=== PATIENT | female | born 1945 | race Caucasian/White ===

== ENCOUNTER 2021-09-03 15:06 | Outpatient (CLI) | payer MEDICARE, SELFPAY ==
--- NOTE | 2021-09-03 15:11 | BI_ITS ---
MAMMOGRAPHY - BILATERAL SCREENING REASON FOR EXAM: Female, 76 years old. Routine annual screening examination. PERTINENT HISTORY: Sister with breast cancer. TECHNIQUE: Digital bilateral breast kale (3D mammographic acquisition) in the CC and MLO projections. 2-D mediolateral oblique (MLO) and craniocaudad (CC) views of both breasts were obtained. CAD: Full Field Digital Mammography with Computer Added Detection was performed. COMPARISON: No comparison mammograms available at this time. If any prior films become available, an addendum to this report can be generated. FINDINGS: Breast Composition: The breasts are heterogeneously dense, which may obscure small masses. There are no dominant masses or suspicious calcifications. No other significant abnormalities are identified. There has been no significant change since the prior study. BI/SCRN MAMM (CAD)W/KALE BILAT IMPRESSION: Stable bilateral screening mammogram. Yearly follow-up mammogram recommended. (A) ASSESSMENT CATEGORY: BIRADS Category 1: Negative. A letter regarding these results will be sent to the patient by the facility within 30 days. Approximately 10% of breast cancers are not detected by mammography. A normal mammogram should not delay biopsy of a clinically suspicious abnormality. [id number] Electronically Signed: Edy Laguna MD at 8:40 EST , Service support ,
--- NOTE | 2021-09-03 15:21 | BD_ITS ---
STUDY: DUAL ENERGY X-RAY ABSORPTIOMETRY / DXA REASON FOR EXAM: Female, 76 years old. Post-menopausal TECHNIQUE: Bone Mineral Density (BMD) measurements of lumbar spine and bilateral hips were obtained. COMPARISON: None. FINDINGS: Lumbar Spine (L1-L4): g/cm2 (1.142) / T-score (0.9) / Z-score (3.4) Findings are suggestive of normal bone density with a low fracture risk. Left Femur Total: g/cm2 (0.905) / T-score (-0.3) / Z-score (1.6) Left Femoral Neck: g/cm2 (0.727) / T-score (-1.1) / Z-score (1.1) Right Femur Total: g/cm2 (0.898) / T-score (-0.4) / Z-score (1.5) Right Femoral Neck: g/cm2 (0.739) / T-score (-1.0) / Z-score (1.2) BD/Dexa Bone Density Study IMPRESSION: The patient is considered osteopenic as outlined below according to World Too Organization (WHO) criteria with a low fracture risk. Reference Information: The T-score is the number of standard deviations above or below the standard which is normal for young adults at their peak bone mineral density. The World Health Organization (WHO) interprets the T-scores as follows: Above -1 Normal bone density Between -1 and -2.5 Osteopenia Equal to / or below -2.5 Osteoporosis As a practical clinical guideline, osteopenia may be graded as follows: Mild -1 through -1.5 Moderate -1.6 through -2.0 Severe -2.1 through -2.4 The Z-score is the number of standard deviations above or below age-matched controls. A Z-score of less than -1.5 would be considered abnormal. References: 1. NIH Osteoporosis and Related Bone Diseases www osteo.org 2. International Society for Clinical Densitometry www iscd.org 3. National Osteoporosis Foundation www nof.org Electronically Signed: Edy Laguna MD at 15:29 EST , Service support ,
[2021-09-03 17:59] LABS: AST(SGOT) 13 U/L (15-37); Alanine Aminotransfer ALT/SGPT 30 U/L (13-56); Albumin, Serum 4.1 g/dL (3.2-5.0); Alkaline Phosphatase 101 U/L (45-117); Bilirubin, Direct 0.13 mg/dL (0.00-0.30); Cholesterol 198 mg/dL (200); Globulin 3.7 g/dL (2.2-4.2); High Density Lipoprotein 48 mg/dL; Protein, Total 7.8 g/dL (6.4-8.2); Triglycerides 303 mg/dL; Very Low Density Lipoprotein 61 mg/dL (5-40)
[2021-09-04 10:05] LABS: Anion Gap 14 (5-15); BUN 18 mg/dL (7-18); BUN/Creat Ratio 16.7 RATIO (10-20); Calcium,Total 9.4 mg/dL (8.5-10.1); Chloride 103 mmol/L (98-107); Creatinine, Serum 1.08 mg/dL (0.55-1.02); EST Glomerular Filtration Rate 52 mL/min (>60); Est Glom Filt Rate - Afr Amer 63 mL/min (>60); Glucose 105 mg/dL (74-106); Potassium 3.3 mmol/L (3.5-5.1); Sodium Level 144 mmol/L (136-145)
== END 2021-09-03 23:59 | disposition short-term general hospital (02) ==
PROVIDERS: PCP Internal Medicine; Referring Provider Nurse Practitioner Adult Health; Visit Provider Nurse Practitioner Adult Health
DX: Z00.00 Encounter for general adult medical examination without abnormal findings (principal); Z12.31 Encounter for screening mammogram for malignant neoplasm of breast; Z13.220 Encounter for screening for lipoid disorders; Z78.0 Asymptomatic menopausal state
CPT/HCPCS: 36415; 77063; 77067; 77080; 80048; 80061; 80076

== ENCOUNTER → 2022-02-26 | Outpatient (CLI) | payer MEDICARE, SELFPAY ==
[2022-02-26 18:02] LABS: Absolute Lymphocyte Count 2.38 X10^3/uL (0.83-4.51); Absolute Neutrophil Count 8.1 X10^3/uL (2.0-7.7); Basophil# 0.04 X10^3/uL; Basophil% 0.3 % (0-1); Eosinophils% 0.8 % (0-5); Hematocrit 46.8 % (37-47); Hemoglobin 15.2 g/dL (12.0-15.0); Lymphocyte # 2.38 X10^3/ul (0.83-4.51); Lymphocyte % 19.9 % (19-41); Mean Corp Hgb Conc 32.5 g/dL (32-36); Mean Corpuscular Hgb 29.5 pg (27.0-32.0); Mean Corpuscular Volume 90.9 fL (81-99); Mean Platelet Vol. 9.3 fl (6.2-12.0); Monocyte# 1.22 X10^3/uL; Monocyte% 10.2 % (0-10); NRBC Flagged by Analyzer 0 % (0-5); Neutrophil # 8.13 X10^3/uL (2.7-7.7); Neutrophil % 68.1 % (47-70); Platelet Count 290 K/mm3 (150-450); RBC Distribution Width CV 14.1 % (11.6-14.6); RBC Distribution Width SD 47.5 fl (35.1-43.9); Red Blood Count 5.15 M/mm3 (4.2-5.4)
[2022-02-26 18:46] LABS: Anion Gap 5 (5-15); BUN 15 mg/dL (7-18); BUN/Creat Ratio 16.9 RATIO (10-20); Calcium,Total 9.3 mg/dL (8.5-10.1); Chloride 111 mmol/L (98-107); Cholesterol 184 mg/dL (200); Creatinine, Serum 0.89 mg/dL (0.55-1.02); EST Glomerular Filtration Rate 65 mL/min (>60); Est Glom Filt Rate - Afr Amer 79 mL/min (>60); Glucose 107 mg/dL (74-106); High Density Lipoprotein 46 mg/dL; Potassium 4.1 mmol/L (3.5-5.1); Sodium Level 143 mmol/L (136-145); Triglycerides 345 mg/dL; Uric Acid 5.9 mg/dL (2.6-6.0); Very Low Density Lipoprotein 69 mg/dL (5-40)
== END | disposition home or self-care (01) ==
LOC: MTLAB 16:35
PROVIDERS: PCP Internal Medicine; Referring Provider Nurse Practitioner Adult Health; Visit Provider Nurse Practitioner Adult Health
DX: I10 Essential (primary) hypertension (principal); E87.6 Hypokalemia; E78.1 Pure hyperglyceridemia; R53.83 Other fatigue; M10.9 Gout, unspecified
CPT/HCPCS: 36415; 80048; 80061; 84550; 85025

== ENCOUNTER → 2022-03-17 | Outpatient (CLI) | payer MEDICARE, SELFPAY ==
[2022-03-17 18:08] LABS: Anion Gap 7 (5-15); BUN 10 mg/dL (7-18); BUN/Creat Ratio 9.3 RATIO (10-20); Calcium,Total 9.3 mg/dL (8.5-10.1); Chloride 108 mmol/L (98-107); Creatinine, Serum 1.07 mg/dL (0.55-1.02); EST Glomerular Filtration Rate 53 mL/min (>60); Est Glom Filt Rate - Afr Amer 64 mL/min (>60); Glucose 125 mg/dL (74-106); Potassium 3.6 mmol/L (3.5-5.1); Sodium Level 145 mmol/L (136-145)
== END | disposition home or self-care (01) ==
PROVIDERS: PCP Internal Medicine; Referring Provider Nurse Practitioner Adult Health; Visit Provider Nurse Practitioner Adult Health
DX: E87.6 Hypokalemia (principal); Z79.899 Other long term (current) drug therapy
CPT/HCPCS: 36415; 80048

== ENCOUNTER → 2023-03-27 | Outpatient (CLI) | payer MEDICARE, SELFPAY ==
[2023-03-27 14:29] LABS: Mucous, Urine 0 SEEN /hpf (<or=2+); Red Blood Cells-Urine 0 SEEN /hpf (0-5)
[2023-03-27 15:23] LABS: Absolute Lymphocyte Count 2.46 X10^3/uL (0.83-4.51); Absolute Neutrophil Count 4.9 X10^3/uL (2.0-7.7); Basophil# 0.04 X10^3/uL; Basophil% 0.5 % (0-1); Eosinophil# 0.14 X10^3/uL; Eosinophils% 1.7 % (0-5); Hematocrit 50.8 % (37-47); Hemoglobin 15.9 g/dL (12.0-15.0); Lymphocyte # 2.46 X10^3/ul (0.83-4.51); Lymphocyte % 29.8 % (19-41); Mean Corp Hgb Conc 31.3 g/dL (32-36); Mean Corpuscular Hgb 29.3 pg (27.0-32.0); Mean Corpuscular Volume 93.7 fL (81-99); Mean Platelet Vol. 9.6 fl (6.2-12.0); Monocyte# 0.64 X10^3/uL; Monocyte% 7.7 % (0-10); NRBC Flagged by Analyzer 0 % (0-5); Neutrophil # 4.93 X10^3/uL (2.7-7.7); Neutrophil % 59.7 % (47-70); Platelet Count 279 K/mm3 (150-450); RBC Distribution Width CV 13.9 % (11.6-14.6); RBC Distribution Width SD 47.8 fl (35.1-43.9); Red Blood Count 5.42 M/mm3 (4.2-5.4); White Blood Count 8.3 K/mm3 (4.4-11.0)
[2023-03-27 15:51] LABS: Color, Urine Yellow (Yellow); Glucose, Dipstick Normal (Normal); Ketone-Dipstick 5 mg/dl (Negative); Leukocyte Esterase-Dipstick 100 /ul (Negative); Nitrite-Dipstick Negative (Negative); Occult Blood-Urine Negative /ul (Negative); Protein-Dipstick 30 mg/dl (Negative); Urine Bilirubin Dipstick Negative (Negative); Urine Clarity Clear (Clear); Urine Urobilinogen Normal (Normal)
[2023-03-27 16:17] LABS: Bacteria 1+ /hpf (None Seen); Squamous Epithelial Cells - UA 5-10 SEEN /hpf (5-10); White Blood Cells 0-5 SEEN /hpf (0-5)
[2023-03-27 16:17] LABS: ALB/GLOB Ratio 1.1 RATIO (0.9-2.4); AST(SGOT) 18 U/L (15-37); Alanine Aminotransfer ALT/SGPT 38 U/L (13-56); Albumin, Serum 3.5 g/dL (3.2-5.0); Alkaline Phosphatase 101 U/L (45-117); Anion Gap 5 (5-15); BUN 13 mg/dL (7-18); BUN/Creat Ratio 12.7 RATIO (10-20); Calcium,Total 9.3 mg/dL (8.5-10.1); Chloride 108 mmol/L (98-107); Cholesterol 262 mg/dL (200); Creatinine, Serum 1.02 mg/dL (0.55-1.02); EST Glomerular Filtration Rate 56 mL/min (>60); Est Glom Filt Rate - Afr Amer 67 mL/min (>60); Globulin 3.3 g/dL (2.2-4.2); Glucose 191 mg/dL (74-106); High Density Lipoprotein 48 mg/dL; Protein, Total 6.8 g/dL (6.4-8.2); Sodium Level 143 mmol/L (136-145); Triglycerides 403 mg/dL
== END | disposition home or self-care (01) ==
LOC: BIMLAB 14:22
PROVIDERS: PCP Internal Medicine; Referring Provider Internal Medicine; Visit Provider Internal Medicine
DX: R82.90 Unspecified abnormal findings in urine (principal); E78.1 Pure hyperglyceridemia; I10 Essential (primary) hypertension
CPT/HCPCS: 36415; 80053; 80061; 81001; 85025; 87086; 87088

== ENCOUNTER 2025-01-13 20:23 | Inpatient (IN) | payer MEDICARE, SELFPAY ==
[2025-01-13] VITALS (11 sets, daily range): BP systolic 105–143; BP diastolic 48–89; PULSE 92–101; RESP 18–20; TEMP 36.1–37; O2SAT 85–99; BMI 32.8; BMI 30.8
--- NOTE | 2025-01-13 20:48 | EKG12_ITS ---
Test Reason : DYSRHYTHMIA Blood Pressure : */* mmHG Vent. Rate : 95 BPM Atrial Rate : 95 BPM P-R Int : 142 ms QRS Dur : 74 ms QT Int : 354 ms P-R-T Axes : 43 -7 17 degrees QTcB Int : 444 ms Normal sinus rhythm Minimal voltage criteria for LVH, may be normal variant ( R in aVL ) Inferior infarct , age undetermined Abnormal ECG Confirmed by Jim Peres ([id number]), editor managing newspaper [employer]ONAM [employer]ETS ([id number]) on 01/16/2025 10:50:36 AM Referred By: Lynn Yao Confirmed By: Jim Peres
--- NOTE | 2025-01-13 20:49 | ED.VIS.DYS ---
HPI History of Present Illness Chief Complaint: Shortness of Breath Detail of Chief Complaint: Weakness and shortness of breath Informant: patient and family Narrative Narrative: Patient presents the emergency department complaint of weakness and feeling short of breath. Patient and family was on a [place] cruise from December 09 December 24. 3 days before the end of the trip [facility] and pneumonia and hypoxemia. Subsequently flew back to [place] and prior to arriving in [place] again had a medical emergency and flight and O2 sat in the 50s. She was admitted to [facility] December 25 and stayed there until she was discharged this morning. Patient flew back to [place]. Family brings her in because she is just generally weak and normally walks with a walker at assisted living facility. She denies any chest pain or significant shortness of breath. She said occasional cough. She came in with an oxygen concentrator but apparently was not turned on off of O2 her O2 sat dropped down into the 80s but on 2 L she is in the mid 90s. [facility] Medical History (Updated 01/13/25 @ 22:[address] Lynn Yao, DO) Hx of bacterial pneumonia Abnormal urinalysis Health care maintenance History of tobacco abuse Bunion, left Fracture of right ankle Home Medications ?Medication ?Instructions ?Recorded ?Last Taken ?Type amlodipine 5 mg tablet 5 mg PO DAILY #30 tabs 12/07/23 Unknown Rx fenofibrate micronized 67 mg 67 mg PO DAILY #30 caps 12/07/23 Unknown Rx capsule allopurinol 100 mg tablet 100 mg PO DAILY #90 tabs 02/04/24 Unknown Rx atorvastatin 40 mg tablet 40 mg PO QHS #90 tabs 02/04/24 Unknown Rx albuterol sulfate 90 mcg/actuation 2 inh inhalation Q6H PRN shortness 01/13/25 Unknown History aerosol inhaler of breath or wheezing metformin 500 mg tablet 500 mg PO BID 01/13/25 Unknown History umeclidinium 62.5 mcg-vilanterol 1 ea inhalation DAILY 01/13/25 Unknown History 25 mcg/actuation powdr for inhalation (Anoro Ellipta) Allergy/AdvReac Type Severity Reaction Status Date / Time No Known Allergies Allergy Verified 01/13/25 20:40 Family History Mother Arthritis Myocardial infarction Father Asthma Colon cancer Myocardial infarction Sister Breast cancer Skin cancer Brother Skin cancer Surgical History History of ankle surgery History of open reduction and internal fixation (ORIF) procedure History of bunionectomy of left great toe Social History household members: none housing: apartment number of children: 2 current occupational status: retired pets and animals: No Smoking Status: Former smoker Tobacco: How many years used: 50 how long ago did patient quit smoking: at age [age] years old. 21 years ago alcohol intake: current details: social drinker. several times a week. substance use type: does not use well-balanced diet: other details: Eats what they give me...ham. chipped ham, pickles. eating out: other details: has lunch delivered to her room. ROS ROS ED Review of Systems ROS Unobtainable: other Constitutional Constitutional ED: Reports lethargy; Denies chills, fever(s), sweats or weight loss Eyes Eyes: Denies blurry vision, change in vision or diplopia ENT ENT ED: Denies rhinorrhea or sore throat Cardiovascular Cardiovascular: Denies chest pain, orthopnea or racing heartbeat Respiratory/Chest Respiratory/Chest: Reports dyspnea; Denies cough, dyspnea on exertion, orthopnea or sputum Gastrointestinal Gastrointestinal: Denies abdominal pain, diarrhea, nausea or vomiting Genitourinary Genitourinary ED: Denies dysuria, hematuria or urinary frequency Musculoskeletal Musculoskeletal: Denies arthralgias, back pain, myalgias or neck pain Integumentary Denies abscess, Abrasions or rash Neurologic Neurologic: Reports weakness; Denies headache(s) Psychiatric Psychiatric: Denies anxiety, depression or suicidal thoughts Endocrine Endocrinology: Denies polydipsia, polyphagia or polyuria Hematologic/Lymphatic Hematologic/Lymphatic: Denies easy bleeding, easy bruising or lymphadenopathy Allergic/Immunologic Allergic/Immunologic ED: Denies mouth swelling, tongue swelling or urticaria EXAM Physical Exam Const Vital Signs: 01/13/25 20:27 01/13/25 20:36 01/13/25 20:36 Temperature 97 F L 97 F L Temperature Source Temporal Oral Pulse Rate 94 101 H 99 Respiratory Rate 18 20 H 20 H Respiratory Effort Respiratory Depth Respiratory Pattern Blood Pressure 137/60 H 137/60 H Blood Pressure Mean 85 85 Pulse Ox 99 85 96 Oxygen Delivery Method Room Air Nasal Cannula Oxygen Flow Rate (L/min) 3 01/13/25 20:42 01/13/25 20:48 01/13/25 20:51 Temperature Temperature Source Pulse Rate Respiratory Rate Respiratory Effort Normal Non-Labored Respiratory Depth Normal Respiratory Pattern Normal Blood Pressure Blood Pressure Mean Pulse Ox 97 98 Oxygen Delivery Method Nasal Cannula Nasal Cannula Nasal Cannula Oxygen Flow Rate (L/min) 2 2 2 01/13/25 21:00 01/13/25 21:30 01/13/25 22:00 Temperature 98.6 F Temperature Source Oral Pulse Rate 95 92 92 Respiratory Rate 18 18 18 Respiratory Effort Respiratory Depth Respiratory Pattern Blood Pressure 125/57 H 107/57 L 105/89 H Blood Pressure Mean 79 73 94 Pulse Ox 92 93 97 Oxygen Delivery Method Nasal Cannula Nasal Cannula Nasal Cannula Oxygen Flow Rate (L/min) 2 2 2 Positive well nourished and well developed General Appearance ED: well developed and NAD HEENT Reports TM's clear and moist mucous membranes normocephalic and atraumatic; Negative for trauma or tenderness Tympanic Membrane ED: Yes TM's clear Eyes PERRL and EOMs intact bilaterally General Eye ED: Negative for pale conjunctiva or scleral icterus Neck no lymphadenopathy, supple and no JVD General: Negative for tenderness Chest Wall inspection of chest normal and palpation of chest normal Chest: Negative for tenderness Resp normal respiratory effort and clear to auscultation bilaterally Resp Narrative: Few coarse rhonchi bilaterally. No accessory muscle use or retractions. Effort and Inspection: Negative for respiratory distress or pain with movement Auscultation: rhonchi; Negative for wheezes or diminished lung sounds Cardio regular rate, regular rhythm, S1 normal heart sound, S2 normal heart sound and no murmurs Peripheral Pulses: pulses 2+ throughout GI normal to inspection, nondistended, normoactive bowel sounds, soft to palpation, non-tender, non-distended and no masses Back/Spine no CVA tenderness and no thoracic nor lumbar tenderness Extremity normal to inspection General Extremety ED: Negative for edema General Extremity: Negative for edema Neuro oriented x3, CN's II-XII intact bilaterally, no sensory deficits noted and gait normal Sensorium / Orientation: awake, alert, oriented to person, oriented to place and oriented to time Motor Exam: strength 5/5 throughout and strength abnormal Psych mental status grossly normal Skin no rashes or lesions noted and no wounds MDM MDM MDM Narrative Medical decision making narrative: Patient presents with generalized weakness and dyspnea with exertion after a long lamas with pneumonia. Patient deconditioned and took her son and her nephew both to get her in the car. Normally she lives in assisted living and is able to manage on her own. On 2 L nasal cannula O2 patient doing well and having O2 saturations in the upper 90s. IV line established. EKG obtained showed sinus rhythm with ventricular rate of 95 bpm with old inferior infarct. CBC with differential obtained showing an 11.0 with hemoglobin 15 and platelet count of 334. Chemistries unremarkable. Troponin minimally elevated 15 and BT [employer] was normal at 96. CTA of the chest was obtained to rule out PE given she does have an elevated D-dimer of 0.9 and her recent travel history. On my interpretation I do not appreciate any large central PEs however official report from radiology pending. Will discuss case with hospitalist to evaluate patient for admission given patient will require admission for deconditioning and will require PT and OT and possible rehabilitation facility Lab Data Attestation: I reviewed the patient's lab results. Labs: Laboratory Results - last 24 hr 01/13/25 20:46 WBC 11.0 RBC 5.17 Hgb 15.3 H Hct 47.3 H MCV 91.5 MCH 29.6 MCHC 32.3 RDW Std Deviation 47.9 H RDW Coeff of Kevin 14.2 Plt Count 334 MPV 9.5 Immature Gran % (Auto) 0.500 Neut % (Auto) 79.7 H Lymph % (Auto) 9.4 L Hoke % (Auto) 9.4 Eos % (Auto) 0.5 Baso % (Auto) 0.5 Absolute Neuts (auto) 8.8 H Absolute Lymphs (auto) 1.04 Nucleated RBC % 0 D-Dimer Quant (PE/DVT) 0.90 H* Sodium 139 Potassium 3.9 Chloride 100 Carbon Dioxide 25.5 Anion Gap 13 BUN 8 Creatinine 0.93 Estim Creat Clear Calc 45.85 L Est GFR (MDRD) Non-Af 62 BUN/Creatinine Ratio 8.7 L Glucose 158 H Calcium 10.0 Troponin T High Sens 15 H NT pro BNP II 96 EKG Initial EKG: Attestation: I personally reviewed and interpreted this EKG as follows: Comments: Sinus rhythm with ventricular rate of 95 bpm with old inferior infarct Discharge Plan Triage Chief Complaint: Shortness of Breath ED Provider: Lynn Yao Dx/Rx/DC Orders Clinical Impression: Weakness, Exertional dyspnea, History of hypertension, Adult failure to thrive Prescriptions: No Action albuterol sulfate 90 mcg/actuation HFA aerosol inhaler 2 inh inhalation Q6H PRN (Reason: shortness of breath or wheezing) umeclidinium-vilanterol [Anoro Ellipta] 62.5-25 mcg/actuation blister with device 1 ea inhalation DAILY metformin 500 mg tablet 500 mg PO BID amlodipine 5 mg tablet 5 mg PO DAILY Qty: 30 1RF fenofibrate micronized 67 mg capsule 67 mg PO DAILY Qty: 30 1RF atorvastatin 40 mg tablet 40 mg PO QHS Qty: 90 0RF allopurinol 100 mg tablet 100 mg PO DAILY Qty: 90 0RF Primary Care Provider: Hernando Chung Referrals: Sunny Guzman MD [Med Staff - Active Staff] - Print Language: Indian Disposition Disposition: Acute Care Hospital [facility]
[2025-01-13 21:10] LABS: Absolute Lymphocyte Count 1.04 X10^3/uL (0.83-4.51); Absolute Neutrophil Count 8.8 X10^3/uL (2.0-7.7); Basophil# 0.05 X10^3/uL; Basophil% 0.5 % (0-1); Eosinophil# 0.06 X10^3/uL; Eosinophils% 0.5 % (0-5); Hematocrit 47.3 % (37-47); Hemoglobin 15.3 g/dL (12.0-15.0); Lymphocyte # 1.04 X10^3/ul (0.83-4.51); Lymphocyte % 9.4 % (19-41); Mean Corp Hgb Conc 32.3 g/dL (32-36); Mean Corpuscular Hgb 29.6 pg (27.0-32.0); Mean Corpuscular Volume 91.5 fL (81-99); Mean Platelet Vol. 9.5 fl (6.2-12.0); Monocyte# 1.04 X10^3/uL; Monocyte% 9.4 % (0-10); NRBC Flagged by Analyzer 0 % (0-5); Neutrophil # 8.79 X10^3/uL (2.7-7.7); Neutrophil % 79.7 % (47-70); Platelet Count 334 K/mm3 (150-450); RBC Distribution Width CV 14.2 % (11.6-14.6); RBC Distribution Width SD 47.9 fl (35.1-43.9); Red Blood Count 5.17 M/mm3 (4.2-5.4)
[2025-01-13 21:27] LABS: Anion Gap 13 (5-15); BUN 8 mg/dL (4-19); BUN/Creat Ratio 8.7 RATIO (10-20); Carbon Dioxide 25.5 mmol/L (21.0-32.0); Chloride 100 mmol/L (98-108); Creatinine, Serum 0.93 mg/dL (0.70-1.20); EST Glomerular Filtration Rate 62 (>60); Estimated Creatinine Clearance 45.85 ml/min (50-250); Glucose 158 mg/dL (70-99); Potassium 3.9 mmol/L (3.3-5.1); Pro- Brain NATRIURETIC PEPTIDE 96 pg/mL (<=1800); Sodium Level 139 mmol/L (133-145); Troponin T High Sensitivity 15 ng/L (<=14)
--- NOTE | 2025-01-13 21:37 | CT_ITS ---
PROCEDURE: CTA CHEST W/WO CONTRAST 01/13/2025 REASON FOR EXAM: DYSPNEA, ELEVATED D-DIMER TECHNIQUE: CTA axial imaging of the chest with intravenous contrast. Multiplanar and multisequence images were obtained. PATIENT PREPARATION: Per protocol CONTRAST: Isovue 370 VOLUME: 100 mL. One or more dose reduction techniques were used (e.g., Automated exposure control, adjustment of the mA and/or kV according to patient size, use of iterative reconstruction technique). RADIATION DOSE SUMMARY: CTDlvol: 7.12+ 12.98 mGy DLP: 349.21 mGycm . COMPARISON: None. FINDINGS: Hardware: No acute abnormalities. Lymph nodes: Unremarkable. Heart: Cardiomegaly. No pericardial effusion. Thoracic Aorta: No thoracic aortic aneurysm or dissection. Pulmonary Vessels: No evidence of acute pulmonary emboli through the major subsegmental branches. Most Proximal Level of Embolus (if embolus present): None Lungs and Airways: [id number] centrilobular emphysema. Subpleural reticulation. Interlobular septal thickening and diffuse ground-glass opacities favoring chronic interstitial lung disease. No definite bronchiectasis to suggest fibrotic change. Pleura: No pleural effusion. No pneumothorax. Upper Abdomen: Visualized portions of the upper abdominal viscera are unremarkable. Bones: Degenerative changes of the thoracic spine. CT/CTA Chest W/WO Contrast IMPRESSION: No pulmonary embolism. Chronic interstitial changes without definite fibrotic change. [id number] centrilobular emphysema. Reading Location: [place] [id number]
[2025-01-13 23:13] LABS: Troponin T High Sens 2 HR 16 ng/L (<=14)
--- NOTE | 2025-01-13 23:21 | PCM.HP.STD ---
HPI - General General Date of Admission: 01/13/25 HPI Narrative DANIEL MONCADA, is a 79 F who presents to the hospital with significant weakness. She was on a cruise for 2 weeks that started in [facility] and ended in [place] but for the last 3 days of her cruise she was in the [facility] because of influenza. She flew back to the [facility] and while flying from [place] to [facility], she developed significant hypoxia down to 50% and had to remain on oxygen during the rest of the flight and was hospitalized in [facility] for 2 weeks. She completed a course of antibiotics and was discharged on oxygen concentrator. She landed at [facility] this evening and her son and nephew had to get her into the car as she could not ambulate under her own power. They brought her to the hospital for evaluation at which point is also noted that she was hypoxic because she was not getting any oxygen from her concentrator as it had run out of battery, she was in the mid 80s on room air but in the mid 90s on 2 L nasal cannula. She is afebrile without a leukocytosis. [facility] Medical History (Updated 01/13/25 @ 22:[address] Lynn Yao, DO) Hx of bacterial pneumonia Abnormal urinalysis Health care maintenance History of tobacco abuse Bunion, left Fracture of right ankle Home Medications ?Medication ?Instructions ?Recorded ?Last Taken ?Type amlodipine 5 mg tablet 5 mg PO DAILY #30 tabs 12/07/23 Unknown Rx fenofibrate micronized 67 mg 67 mg PO DAILY #30 caps 12/07/23 Unknown Rx capsule allopurinol 100 mg tablet 100 mg PO DAILY #90 tabs 02/04/24 Unknown Rx atorvastatin 40 mg tablet 40 mg PO QHS #90 tabs 02/04/24 Unknown Rx albuterol sulfate 90 mcg/actuation 2 inh inhalation Q6H PRN shortness 01/13/25 Unknown History aerosol inhaler of breath or wheezing metformin 500 mg tablet 500 mg PO BID 01/13/25 Unknown History umeclidinium 62.5 mcg-vilanterol 1 ea inhalation DAILY 01/13/25 Unknown History 25 mcg/actuation powdr for inhalation (Anoro Ellipta) Allergy/AdvReac Type Severity Reaction Status Date / Time No Known Allergies Allergy Verified 01/13/25 20:40 Family History Mother Arthritis Myocardial infarction Father Asthma Colon cancer Myocardial infarction Sister Breast cancer Skin cancer Brother Skin cancer Surgical History History of ankle surgery History of open reduction and internal fixation (ORIF) procedure History of bunionectomy of left great toe Social History household members: none housing: apartment number of children: 2 current occupational status: retired pets and animals: No Smoking Status: Former smoker Tobacco: How many years used: 50 how long ago did patient quit smoking: at age [age] years old. 21 years ago alcohol intake: current details: social drinker. several times a week. substance use type: does not use well-balanced diet: other details: Eats what they give me...ham. chipped ham, pickles. eating out: other details: has lunch delivered to her room. ROS Constitutional Constitutional: Reports weakness; Denies chills, fatigue, fever(s) or malaise Eyes Eyes: Denies blurry vision ENT HEENT: Denies headache(s) or nasal discharge Cardiovascular Cardiovascular: Denies chest pain, dyspnea on exertion or syncope Respiratory/Chest Respiratory/Chest: Reports shortness of breath with exertion; Denies cough or shortness of breath at rest Gastrointestinal Gastrointestinal: Denies constipation, diarrhea, nausea or vomiting Genitourinary Genitourinary: Denies dysuria Neurologic Neurologic: Denies focal weakness, numbness or tremor(s) Psychiatric Psychiatric: Denies anxiety or depression Vital Signs Vital Signs Vital Signs: 01/13/25 20:27 01/13/25 20:36 01/13/25 20:36 Temperature 97 F L 97 F L Temperature Source Temporal Oral Pulse Rate 94 101 H 99 Respiratory Rate 18 20 H 20 H Respiratory Effort Respiratory Depth Respiratory Pattern Blood Pressure 137/60 H 137/60 H Blood Pressure Mean 85 85 Pulse Ox 99 85 96 Oxygen Delivery Method Room Air Nasal Cannula Oxygen Flow Rate (L/min) 3 01/13/25 20:42 01/13/25 20:48 01/13/25 20:51 Temperature Temperature Source Pulse Rate Respiratory Rate Respiratory Effort Normal Non-Labored Respiratory Depth Normal Respiratory Pattern Normal Blood Pressure Blood Pressure Mean Pulse Ox 97 98 Oxygen Delivery Method Nasal Cannula Nasal Cannula Nasal Cannula Oxygen Flow Rate (L/min) 2 2 2 01/13/25 21:00 01/13/25 21:30 01/13/25 22:00 Temperature 98.6 F Temperature Source Oral Pulse Rate 95 92 92 Respiratory Rate 18 18 18 Respiratory Effort Respiratory Depth Respiratory Pattern Blood Pressure 125/57 H 107/57 L 105/89 H Blood Pressure Mean 79 73 94 Pulse Ox 92 93 97 Oxygen Delivery Method Nasal Cannula Nasal Cannula Nasal Cannula Oxygen Flow Rate (L/min) 2 2 2 01/13/25 22:30 01/13/25 22:30 01/13/25 23:00 Temperature 98.4 F 98.4 F Temperature Source Oral Pulse Rate 95 95 98 Respiratory Rate 18 18 20 H Respiratory Effort Respiratory Depth Respiratory Pattern Blood Pressure 117/49 L 117/49 L 122/48 H Blood Pressure Mean 71 71 72 Pulse Ox 94 94 93 Oxygen Delivery Method Nasal Cannula Nasal Cannula Oxygen Flow Rate (L/min) 2 2 Weight Weight: 173 lb 11.588 oz Body Mass Index (BMI) 32.8 Physical Exam Narrative General: Alert, Oriented x3, Cooperative, No apparent distress HEENT: Atraumatic, PERRLA, EOMI, Normocephalic Oral: Moist Mucosa Neck: Supple, No JVD Lungs: Diminished, Normal air movement, No rhonchi, scattered wheeze, No rales Cardiovascular: Regular rate, Regular Rhythm, Normal S1, Normal S2, No murmurs Abdomen: Soft, Non Tender, Non-Distended, No Hepato-splenomegaly Extremities: No edema, Capillary Refill Less than 3 Seconds Skin: No rashes, No breakdown Musculoskeletal: No Tenderness to Palpation of Joints or Extremities Neurological: No focal neurological deficits, Motor Exam 5/5 strength throughout, Sensory exam intact to light touch and pain Psych/Mental Status: Normal Affect, Appropriate Results Lab / Micro Data 01/13/25 20:46 01/13/25 20:46 Labs: Laboratory Results - last 24 hr 01/13/25 20:46: WBC 11.0, RBC 5.17, Hgb 15.3 H, Hct 47.3 H, MCV 91.5, MCH 29.6, MCHC 32.3, RDW Std Deviation 47.9 H, RDW Coeff of Kevin 14.2, Plt Count 334, MPV 9.5, Immature Gran % (Auto) 0.500, Neut % (Auto) 79.7 H, Lymph % (Auto) 9.4 L, Allen % (Auto) 9.4, Eos % (Auto) 0.5, Baso % (Auto) 0.5, Absolute Neuts (auto) 8.8 H, Absolute Lymphs (auto) 1.04, Nucleated RBC % 0, D-Dimer Quant (PE/DVT) 0.90 H*, Sodium 139, Potassium 3.9, Chloride 100, Carbon Dioxide 25.5, Anion Gap 13, BUN 8, Creatinine 0.93, Estim Creat Clear Calc 45.85 L, Est GFR (MDRD) Non-Af 62, BUN/Creatinine Ratio 8.7 L, Glucose 158 H, Calcium 10.0, Troponin T High Sens 15 H, NT pro BNP II 96 01/13/25 22:49: Troponin T Hi Sens 2 Hr 16 H Imaging Radiology Impression Chest CTA 01/13/25 21:37 IMPRESSION: No pulmonary embolism. Chronic interstitial changes without definite fibrotic change. [id number] centrilobular emphysema. Reading Location: [place] [address] Assessment & Plan Assessment/Plan (1) Adult failure to thrive: (2) Exertional dyspnea: (3) Weakness: PLAN: Plan 1. Acute hypoxic respiratory insufficiency secondary to recent influenza A with superimposed bacterial pneumonia complicated by history of COPD/weakness and debility ? PT/OT ? Consult case management for discharge planning ? Will continue with her home inhalers as indicated ? Will maintain her on 2 L nasal cannula ? She does not have a leukocytosis and is afebrile, she does not require any further treatments either for her influenza A which she was on Tamiflu for while on the cruise ship in [place] or antibiotics that she completed while in [facility] 2. Essential HTN/HLD ? Continue with her home blood pressure medications ? Continue with her home Lipitor ? Will monitor and make adjustments as necessary 3. Type 2 diabetes ? Hold metformin ? High scale insulin ? Accu-Cheks ACHS ? Will monitor make adjustments as necessary DVT: Lovenox Charges/Coding Visit Charges Inpatient E&M: 05525 Init Hosp L2
[2025-01-14] VITALS (8 sets, daily range): BP systolic 123–135; BP diastolic 44–70; PULSE 73–91; RESP 18–20; TEMP 36.4–36.8; O2SAT 94–97
--- NOTE | 2025-01-14 00:54 | NURSING ---
This RN called [facility] to ask for a med list. The nurse that answered the call said she would walk over to the independent living side and ask them to fax the med list.
[2025-01-14 01:59] LABS: Troponin T High Sens 4 HR 28 ng/L (<=14)
[2025-01-14 06:39] LABS: Bedside Glucose 131 mg/dL (74-106)
[2025-01-14] MEDS: Enoxaparin 40 MG/0.4 ML Syringe SC (08:25)
[2025-01-14] MEDS: amLODIPine 5 MG Tablet PO (08:26)
[2025-01-14] MEDS: Allopurinol 100 MG Tablet PO (08:26)
[2025-01-14] MEDS: Fenofibrate 48 MG Tablet PO (08:26)
--- NOTE | 2025-01-14 08:50 | PCM.PN.HOSP ---
Reason for Visit Reason for Visit: Diagnoses Other forms of dyspnea (01/13/25) Weakness (01/13/25) Adult failure to thrive (01/13/25) Subjective Subjective Patient is an 79-year-old female admitted with progressive generalized weakness following recent cruise which was complicated by flu and subsequent pneumonia requiring hospitalization in [place]. Patient was brought directly to the ED after she disembarked from the airport Objective Data Objective Data Vital Signs: Vital Signs Temp Pulse Resp BP Pulse Ox O2 Del Method O2 Flow Rate 97.6 F L 87 20 H 124/51 H 94 Nasal Cannula 2.5 01/14/25 08:21 01/14/25 08:21 01/14/25 08:21 01/14/25 08:21 01/14/25 08:31 01/14/25 08:31 01/14/25 08:31 Oxygen Flow Rate (L/min) 2.5 Oxygen Delivery Method Nasal Cannula Weight: 76.4 kg Body Mass Index (BMI) 30.8 Intake & Output: Intake and Output for Last 24 Hours 01/12/25 01/13/25 01/14/25 23:59 23:59 23:59 Intake Total 400 / 400 Balance 400 / 400 Lab / Micro Data 01/13/25 20:46 01/13/25 20:46 Labs: Laboratory Results - last 24 hr 01/13/25 20:46: WBC 11.0, RBC 5.17, Hgb 15.3 H, Hct 47.3 H, MCV 91.5, MCH 29.6, MCHC 32.3, RDW Std Deviation 47.9 H, RDW Coeff of Kevin 14.2, Plt Count 334, MPV 9.5, Immature Gran % (Auto) 0.500, Neut % (Auto) 79.7 H, Lymph % (Auto) 9.4 L, [place] % (Auto) 9.4, Eos % (Auto) 0.5, Baso % (Auto) 0.5, Absolute Neuts (auto) 8.8 H, Absolute Lymphs (auto) 1.04, Nucleated RBC % 0, D-Dimer Quant (PE/DVT) 0.90 H*, Sodium 139, Potassium 3.9, Chloride 100, Carbon Dioxide 25.5, Anion Gap 13, BUN 8, Creatinine 0.93, Estim Creat Clear Calc 45.85 L, Est GFR (MDRD) Non-Af 62, BUN/Creatinine Ratio 8.7 L, Glucose 158 H, Calcium 10.0, Troponin T High Sens 15 H, NT pro BNP II 96 01/13/25 22:49: Troponin T Hi Sens 2 Hr 16 H 01/14/25 01:35: Troponin T Hi Sens 4Hr 28 H 01/14/25 06:14: POC Glucose 131 H Radiography Diagnostic Testing: Radiology Impression Chest CTA 01/13/25 21:37 IMPRESSION: No pulmonary embolism. Chronic interstitial changes without definite fibrotic change. Ccobgssk-we-vakpcs centrilobular emphysema. Reading Location: [place] [address] Physical Exam Narrative GENERAL: cooperative on supplemental oxygen HEENT: Atraumatic; normocephalic EYES; Anicteric, Normal Conjunctiva NECK; supple, normal thyroid, RESPIRATORY: Diminished to auscultation CARDIOVASCULAR: Regular S1 S2, GI: soft, normoactive bowel sounds, : No Renal angle tenderness; EXTREMITIES: No edema, no clubbing, MUSCULOSKELETAL: no muscle wasting NEURO: Awake; no lateralizing signs. SKIN: No Rash PSYCH; Flat affect Assessment & Plan Assessment/Plan (1) Adult failure to thrive: (2) Exertional dyspnea: (3) Weakness: PLAN: Plan Patient is an 79-year-old female admitted with progressive generalized weakness following recent cruise which was complicated by flu and subsequent pneumonia requiring hospitalization in [place]. Patient was brought directly to the ED after she disembarked from the airport 1. Acute hypoxic respiratory insufficiency ? Secondary to recent influenza A pneumonia with superimposed bacterial pneumonia. Patient was treated appropriately. Placed on supplemental oxygen. Plan is to assess patient for home oxygen 2. Physical deconditioning ? Requested for PT OT eval and psychologist social to assist with discharge planning 3. Hypertension ? Blood pressure controlled, home medications continued with dose adjustment as needed 4. Diabetes mellitus type 2 ? Patient is on metformin held on admission placed on Accu-Cheks AC and at bedtime with sliding scale coverage 5. Dyslipidemia ? Patient is on fenofibrate and atorvastatin, continued 6. Gout ? Patient is on allopurinol continue 7. DVT prophylaxis ? On enoxaparin Charges/Coding Visit Charges Inpatient E&M: 35796 Subs Hosp L2
--- NOTE | 2025-01-14 09:43 | CASEMGMT ---
Social Work SW met w/pt, reviewed prior level of function and anticipated discharge plan w/pt. PCP: Dr. Chung Specialists: None Pharmacy: [facility] in [place] Insurance Coverage/prescription coverage: [place] [employer] LNSHELLEY: Son, Wale, lives local. LW/POA: None. Pt has not completed the documents, is not interested in completing them at this time. Living Arrangements/Prior level of function: Pt lives alone in independent living at [place]. Pt cooks, cleans, drives, completes all ADLS for herself. Pt normally does not use and DME, and in fact does not own any DME. DME/HHC/SNF: Pt has no history of any. Pt is not normally on home O2. Pt went on a cruise and got sick on the cruise, was in a hospital in [place], then flew home. Pt's family brought her here as she was still not feeling well. Plan: TBD. Pt would prefer to go home at d/c if able. Pt is open to HHC if needed. SW will continue to follow, explained to pt will need to see how therapy goes today, to help determine if returning home is appropriate. It is also anticipated pt may need home O2 if she is indeed able to return home. ISABEL Draper
--- NOTE | 2025-01-14 10:06 | CASEMGMT ---
Social Work SW did create a list, should it be needed via [facility] of [facility] facilities in network w/pt's insurance, in pt's preferred geographic area and complete w/quality and resource use data. ISABEL Draper
--- NOTE | 2025-01-14 11:56 | CASEMGMT ---
Addendum entered by Mariella Peck 01/14/25 14:04: Social Work Pt's son called SW back, he is in agreement w/plan for pt to go to [facility]. SW did let son know this is subject to precert, and there is a chance they do not authorize pt should she improve with PT. Son states understanding. He also did inform SW that pt does have an oxygen device through [facility] that was covered by insurance, however it did not work properly on their way back from [place]. SW will continue to follow, plan continues to be for pt to go to [facility]. ISABEL Draper Addendum entered by Mariella Peck 01/14/25 12:13: Social Work Initial referral sent to [facility] via [facility]. ISABEL Draper Original Note: Social Work SW spoke w/therapy, PT does think pt may benefit from SNF placement. SW spoke w/pt, she is agreeable for short term SNF placement. SW offered pt the SNF list PERLITA created. Pt declined list, she would like to go to [facility] since she lives there in the [place]. SW explained will make the referral, and she will need a precert so will be here through the weekend. Pt states understanding. SW inquired if she would like SW to call and update her son, she is agreeable to this. PERLITA called son Wale, message left to call this SW back. ISABEL Draper
[2025-01-14 12:00] LABS: Bedside Glucose 152 mg/dL (74-106)
[2025-01-14] MEDS: Insulin Lispro 100 UNIT/ML INSULN.PEN SC ×2 (12:07→16:52)
[2025-01-14 16:18] LABS: Bedside Glucose 162 mg/dL (74-106)
[2025-01-14] MEDS: Glucerna Shake 120 ML LIQUID PO ×2 (16:52→21:03)
[2025-01-14] MEDS: Atorvastatin Calcium 40 MG Tablet PO (21:03)
[2025-01-14] MEDS: 0.9% Saline Lock 10 ML Syringe IV (21:03)
[2025-01-14 21:43] LABS: Bedside Glucose 139 mg/dL (74-106)
[2025-01-15] VITALS (7 sets, daily range): BP systolic 120–123; BP diastolic 48–59; PULSE 70–86; RESP 16–18; TEMP 36.6–36.9; O2SAT 89–96
[2025-01-15 06:31] LABS: Bedside Glucose 138 mg/dL (74-106)
[2025-01-15 07:02] LABS: Absolute Lymphocyte Count 1.38 X10^3/uL (0.83-4.51); Absolute Neutrophil Count 3.9 X10^3/uL (2.0-7.7); Basophil# 0.06 X10^3/uL; Basophil% 0.9 % (0-1); Eosinophil# 0.34 X10^3/uL; Eosinophils% 5.3 % (0-5); Hematocrit 38.4 % (37-47); Hemoglobin 12.4 g/dL (12.0-15.0); Lymphocyte # 1.38 X10^3/ul (0.83-4.51); Lymphocyte % 21.6 % (19-41); Mean Corp Hgb Conc 32.3 g/dL (32-36); Mean Corpuscular Hgb 29.6 pg (27.0-32.0); Mean Corpuscular Volume 91.6 fL (81-99); Mean Platelet Vol. 9.6 fl (6.2-12.0); Monocyte# 0.74 X10^3/uL; Monocyte% 11.6 % (0-10); NRBC Flagged by Analyzer 0 % (0-5); Neutrophil # 3.85 X10^3/uL (2.7-7.7); Neutrophil % 60.1 % (47-70); Platelet Count 271 K/mm3 (150-450); RBC Distribution Width CV 14.3 % (11.6-14.6); RBC Distribution Width SD 47.8 fl (35.1-43.9); Red Blood Count 4.19 M/mm3 (4.2-5.4); White Blood Count 6.4 K/mm3 (4.4-11.0)
--- NOTE | 2025-01-15 07:27 | PCM.PN.HOSP ---
Reason for Visit Reason for Visit: Diagnoses Other forms of dyspnea (01/13/25) Weakness (01/13/25) Adult failure to thrive (01/13/25) Subjective Subjective Patient was placed under enteric precaution after had 1 bout of explosive loose bowel movement. Per nursing staff patient has not had any recurrence. Objective Data Objective Data Vital Signs: Vital Signs Temp Pulse Resp BP Pulse Ox O2 Del Method O2 Flow Rate 97.8 F 83 18 120/48 L 96 Nasal Cannula 2 01/15/25 06:11 01/15/25 06:11 01/15/25 06:11 01/15/25 06:11 01/15/25 06:11 01/15/25 06:16 01/15/25 06:16 Oxygen Flow Rate (L/min) 2 Oxygen Delivery Method Nasal Cannula Weight: 76.4 kg Body Mass Index (BMI) 30.8 Intake & Output: Intake and Output for Last 24 Hours 01/13/25 01/14/25 01/15/25 23:59 23:59 23:59 Intake Total 600 / 600 100 / 100 Balance 600 / 600 100 / 100 Lab / Micro Data 01/15/25 06:26 01/15/25 06:26 Labs: Laboratory Results - last 24 hr 01/14/25 11:35: POC Glucose 152 H 01/14/25 16:01: POC Glucose 162 H 01/14/25 21:02: POC Glucose 139 H 01/15/25 06:10: POC Glucose 138 H 01/15/25 06:26: WBC 6.4, RBC 4.19 L, Hgb 12.4, Hct 38.4, MCV 91.6, MCH 29.6, MCHC 32.3, RDW Std Deviation 47.8 H, RDW Coeff of Kevin 14.3, Plt Count 271, MPV 9.6, Immature Gran % (Auto) 0.500, Neut % (Auto) 60.1, Lymph % (Auto) 21.6, [place] % (Auto) 11.6 H, Eos % (Auto) 5.3 H, Baso % (Auto) 0.9, Absolute Neuts (auto) 3.9, Absolute Lymphs (auto) 1.38, Nucleated RBC % 0 Physical Exam Narrative GENERAL: cooperative on supplemental oxygen HEENT: Atraumatic; normocephalic EYES; Anicteric, Normal Conjunctiva NECK; supple, normal thyroid, RESPIRATORY: Diminished to auscultation CARDIOVASCULAR: Regular S1 S2, GI: soft, normoactive bowel sounds, : No Renal angle tenderness; EXTREMITIES: No edema, no clubbing, MUSCULOSKELETAL: no muscle wasting NEURO: Awake; no lateralizing signs. SKIN: No Rash PSYCH; Flat affect Assessment & Plan Assessment/Plan (1) Adult failure to thrive: (2) Exertional dyspnea: (3) Weakness: PLAN: Plan Patient is an 79-year-old female admitted with progressive generalized weakness following recent cruise which was complicated by flu and subsequent pneumonia requiring hospitalization in [place]. Patient was brought directly to the ED after she disembarked from the airport 1. Acute hypoxic respiratory insufficiency ? Secondary to recent influenza A pneumonia with superimposed bacterial pneumonia. Patient was treated appropriately. Placed on supplemental oxygen. Plan is to assess patient for home oxygen ? 01/15/2025; patient remains on 2 L flow per minute 2. Physical deconditioning ? Requested for PT OT eval and psychosocial rehabilitation counselor to assist with discharge planning 3. Hypertension ? Blood pressure controlled, home medications continued with dose adjustment as needed 4. Diabetes mellitus type 2 ? Patient is on metformin held on admission placed on Accu-Cheks AC and at bedtime with sliding scale coverage 5. Dyslipidemia ? Patient is on fenofibrate and atorvastatin, continued 6. Gout ? Patient is on allopurinol continue 7. DVT prophylaxis ? On enoxaparin 8. Diarrhea ? Patient was placed under enteric precautions given her recent travel. She had also been treated with antibiotics stool was therefore sent for enteric pathogen panel as well as C. difficile Charges/Coding Visit Charges Inpatient E&M: 49259 Subs Hosp L2
[2025-01-15 07:37] LABS: Anion Gap 11 (5-15); BUN 6 mg/dL (4-19); BUN/Creat Ratio 9.2 RATIO (10-20); Carbon Dioxide 25.6 mmol/L (21.0-32.0); Chloride 106 mmol/L (98-108); EST Glomerular Filtration Rate 87 (>60); Estimated Creatinine Clearance 53.67 ml/min (50-250); Glucose 135 mg/dL (70-99); Potassium 3.4 mmol/L (3.3-5.1); Sodium Level 143 mmol/L (133-145)
[2025-01-15] MEDS: Glucerna Shake 120 ML LIQUID PO ×2 (08:30→21:33)
[2025-01-15] MEDS: Fenofibrate 48 MG Tablet PO (08:31)
[2025-01-15] MEDS: Allopurinol 100 MG Tablet PO (08:31)
[2025-01-15] MEDS: Enoxaparin 40 MG/0.4 ML Syringe SC (08:31)
[2025-01-15] MEDS: amLODIPine 5 MG Tablet PO (08:32)
[2025-01-15 12:13] LABS: Bedside Glucose 147 mg/dL (74-106)
--- NOTE | 2025-01-15 15:48 | NURSING ---
o2 resumed at 1 l nc, and it increased to 93%.
[2025-01-15 18:08] LABS: Bedside Glucose 115 mg/dL (74-106)
[2025-01-15] MEDS: Atorvastatin Calcium 40 MG Tablet PO (21:33)
[2025-01-15 22:45] LABS: Bedside Glucose 135 mg/dL (74-106)
[2025-01-16] VITALS (7 sets, daily range): BP systolic 114–125; BP diastolic 48–59; PULSE 74–81; RESP 16–19; TEMP 36.3–36.6; O2SAT 84–98
[2025-01-16 06:24] LABS: Bedside Glucose 145 mg/dL (74-106)
[2025-01-16 06:55] LABS: Absolute Lymphocyte Count 1.45 X10^3/uL (0.83-4.51); Absolute Neutrophil Count 3.2 X10^3/uL (2.0-7.7); Basophil# 0.05 X10^3/uL; Basophil% 0.9 % (0-1); Eosinophil# 0.36 X10^3/uL; Eosinophils% 6.3 % (0-5); Hematocrit 38.4 % (37-47); Hemoglobin 12.5 g/dL (12.0-15.0); Lymphocyte # 1.45 X10^3/ul (0.83-4.51); Lymphocyte % 25.3 % (19-41); Mean Corp Hgb Conc 32.6 g/dL (32-36); Mean Corpuscular Hgb 29.6 pg (27.0-32.0); Mean Platelet Vol. 9.7 fl (6.2-12.0); Monocyte# 0.67 X10^3/uL; Monocyte% 11.7 % (0-10); NRBC Flagged by Analyzer 0 % (0-5); Neutrophil # 3.19 X10^3/uL (2.7-7.7); Neutrophil % 55.5 % (47-70); Platelet Count 256 K/mm3 (150-450); RBC Distribution Width CV 14.2 % (11.6-14.6); RBC Distribution Width SD 47.6 fl (35.1-43.9); Red Blood Count 4.22 M/mm3 (4.2-5.4); White Blood Count 5.7 K/mm3 (4.4-11.0)
[2025-01-16 07:24] LABS: Anion Gap 11 (5-15); BUN 7 mg/dL (4-19); Calcium,Total 8.8 mg/dL (7.6-11.0); Carbon Dioxide 25.5 mmol/L (21.0-32.0); Chloride 105 mmol/L (98-108); Creatinine, Serum 0.69 mg/dL (0.70-1.20); EST Glomerular Filtration Rate 88 (>60); Estimated Creatinine Clearance 53.67 ml/min (50-250); Glucose 131 mg/dL (70-99); Potassium 3.3 mmol/L (3.3-5.1); Sodium Level 142 mmol/L (133-145)
--- NOTE | 2025-01-16 08:03 | PCM.PN.HOSP ---
Reason for Visit Reason for Visit: Diagnoses Other forms of dyspnea (01/13/25) Weakness (01/13/25) Adult failure to thrive (01/13/25) Subjective Subjective Patient has not had no more recurrence of her diarrhea. Her isolation subsequently discontinued. Awaiting transfer to a [place] [facility] [place] [facility] facility Objective Data Objective Data Vital Signs: Vital Signs Temp Pulse Resp BP Pulse Ox O2 Del Method O2 Flow Rate 97.9 F 79 17 125/59 H 94 Nasal Cannula 2 01/16/25 05:44 01/16/25 05:44 01/16/25 05:44 01/16/25 05:44 01/16/25 05:49 01/16/25 07:42 01/16/25 05:49 Oxygen Flow Rate (L/min) 2 Oxygen Delivery Method Nasal Cannula Weight: 76.4 kg Body Mass Index (BMI) 30.8 Intake & Output: Intake and Output for Last 24 Hours 01/14/25 01/15/25 01/16/25 23:59 23:59 23:59 Intake Total 600 / 600 400 / 400 300 / 300 Balance 600 / 600 400 / 400 300 / 300 Lab / Micro Data 01/16/25 06:11 01/16/25 06:11 Labs: Laboratory Results - last 24 hr 01/15/25 11:41: POC Glucose 147 H 01/15/25 15:44: POC Glucose 115 H 01/15/25 21:32: POC Glucose 135 H 01/16/25 05:47: POC Glucose 145 H 01/16/25 06:11: WBC 5.7, RBC 4.22, Hgb 12.5, Hct 38.4, MCV 91.0, MCH 29.6, MCHC 32.6, RDW Std Deviation 47.6 H, RDW Coeff of Kevin 14.2, Plt Count 256, MPV 9.7, Immature Gran % (Auto) 0.300, Neut % (Auto) 55.5, Lymph % (Auto) 25.3, Bent % (Auto) 11.7 H, Eos % (Auto) 6.3 H, Baso % (Auto) 0.9, Absolute Neuts (auto) 3.2, Absolute Lymphs (auto) 1.45, Nucleated RBC % 0, Sodium 142, Potassium 3.3, Chloride 105, Carbon Dioxide 25.5, Anion Gap 11, BUN 7, Creatinine 0.69 L, Estim Creat Clear Calc 53.67, Est GFR (MDRD) Non-Af 88, BUN/Creatinine Ratio 10.0, Glucose 131 H, Calcium 8.8 Physical Exam Narrative GENERAL: cooperative on supplemental oxygen HEENT: Atraumatic; normocephalic EYES; Anicteric, Normal Conjunctiva NECK; supple, normal thyroid, RESPIRATORY: Diminished to auscultation CARDIOVASCULAR: Regular S1 S2, GI: soft, normoactive bowel sounds, : No Renal angle tenderness; EXTREMITIES: No edema, no clubbing, MUSCULOSKELETAL: no muscle wasting NEURO: Awake; no lateralizing signs. SKIN: No Rash PSYCH; Flat affect Assessment & Plan Assessment/Plan (1) Adult failure to thrive: (2) Exertional dyspnea: (3) Weakness: PLAN: Plan Patient is an 79-year-old female admitted with progressive generalized weakness following recent cruise which was complicated by flu and subsequent pneumonia requiring hospitalization in [place]. Patient was brought directly to the ED after she disembarked from the airport 1. Acute hypoxic respiratory insufficiency ? Secondary to recent influenza A pneumonia with superimposed bacterial pneumonia. Patient was treated appropriately. Placed on supplemental oxygen. Plan is to assess patient for home oxygen ? 01/15/2025; patient remains on 2 L flow per minute 2. Physical deconditioning ? Requested for PT OT eval and social group worker to assist with discharge planning ? 01/16/2025; awaiting insurance precertification prior to transfer to [place] [facility] [place] facility 3. Hypertension ? Blood pressure controlled, home medications continued with dose adjustment as needed 4. Diabetes mellitus type 2 ? Patient is on metformin held on admission placed on Accu-Cheks AC and at bedtime with sliding scale coverage 5. Dyslipidemia ? Patient is on fenofibrate and atorvastatin, continued 6. Gout ? Patient is on allopurinol continue 7. DVT prophylaxis ? On enoxaparin 8. Diarrhea ? Patient was placed under enteric precautions given her recent travel. She had also been treated with antibiotics stool was therefore sent for enteric pathogen panel as well as C. difficile ? 01/16/2025; patient has not had any recurrence of her diarrhea. Isolation subsequently discontinued Charges/Coding Visit Charges Inpatient E&M: 96443 Subs Hosp L2
--- NOTE | 2025-01-16 08:24 | CASEMGMT ---
Discharge Planning Updates sent to [facility]. Acceptance pending. Joann Rivero DC Planning Asst.
--- NOTE | 2025-01-16 08:50 | CASEMGMT ---
[facility] has accepted and will submit for precert. Joann Rivero DC Planning Asst.
[2025-01-16] MEDS: amLODIPine 5 MG Tablet PO (09:35)
[2025-01-16] MEDS: Glucerna Shake 120 ML LIQUID PO ×2 (09:35→16:46)
[2025-01-16] MEDS: Allopurinol 100 MG Tablet PO (09:35)
[2025-01-16] MEDS: Fenofibrate 48 MG Tablet PO (09:35)
[2025-01-16] MEDS: Enoxaparin 40 MG/0.4 ML Syringe SC (09:36)
--- NOTE | 2025-01-16 10:26 | CASEMGMT ---
[facility] Pt notified. SW remains available to follow. YTE Silverio
[2025-01-16 11:43] LABS: Bedside Glucose 158 mg/dL (74-106)
[2025-01-16] MEDS: Insulin Lispro 100 UNIT/ML INSULN.PEN SC ×2 (12:00→16:43)
--- NOTE | 2025-01-16 15:12 | CASEMGMT ---
[facility] has obtained auth to admit. SW updated. Joann Rivero DC Planning Ast.
--- NOTE | 2025-01-16 15:28 | PCM.TXEXTCAR ---
Diet Diet Order/Speech Therapy: INPATIENT Hospital Diet / Speech Therapy Order(s) 01/13/25 23:58 Diet: Cardiac - Heart Healthy Food consistency:: Regular Liquid Consistency:: Regular/Thin Routine Orders/Code Status Code Status: Full Code DC O2, CPAP, BIPAP needs Home O2 Discharge instructions: Yes Type of respiratory needs?: Oxygen Oxygen frequency: Continuous Continuous oxygen liters per minute: 2 Therapies Physical Therapy: Eval and Treat Occupational Therapy: Eval and Treat Problem/Diagnosis (1) Adult failure to thrive: Status: Acute Code(s): R62.7 - Adult failure to thrive (2) Exertional dyspnea: Status: Acute Code(s): R06.09 - Other forms of dyspnea (3) Weakness: Status: Acute Code(s): R53.1 - Weakness Plan Patient is an 79-year-old female admitted with progressive generalized weakness following recent cruise which was complicated by flu and subsequent pneumonia requiring hospitalization in [place]. Patient was brought directly to the ED after she disembarked from the airport 1. Acute hypoxic respiratory insufficiency ? Secondary to recent influenza A pneumonia with superimposed bacterial pneumonia. Patient was treated appropriately. Placed on supplemental oxygen. Plan is to assess patient for home oxygen ? 01/15/2025; patient remains on 2 L flow per minute 2. Physical deconditioning ? Requested for PT OT eval and community mental health social worker to assist with discharge planning ? 01/16/2025; awaiting insurance precertification prior to transfer to [facility] facility ? Patient was discharged to correction facility once insurance precertification was obtained 3. Hypertension ? Blood pressure controlled, home medications continued with dose adjustment as needed 4. Diabetes mellitus type 2 ? Patient is on metformin held on admission placed on Accu-Cheks AC and at bedtime with sliding scale coverage 5. Dyslipidemia ? Patient is on fenofibrate and atorvastatin, continued 6. Gout ? Patient is on allopurinol continue 7. DVT prophylaxis ? On enoxaparin 8. Diarrhea ? Patient was placed under enteric precautions given her recent travel. She had also been treated with antibiotics stool was therefore sent for enteric pathogen panel as well as C. difficile ? 01/16/2025; patient has not had any recurrence of her diarrhea. Isolation subsequently discontinued Allergies/Procedures Done in Hospital Allergies No Known Allergies Allergy (Verified 01/13/25 20:40) Type of Care/Length of Stay Estimated LOS: Convalescent Care Less Than 30 days Type of Care Needed: Skilled Rehab Potential: Good Prognosis: Good Additional Orders/Day of Discharge Day of Discharge: 01/16/25 Dietary and Speech Recommendations Dietitian Recommendations/Changes: Will adjust diet to CCD, Low sodium diet to manage medical conditions. Will continue 120mL Glucerna 4x daily with medpass to provide supplemental energy and promote weight maintenance. Discharge Plan Admission Admit Date/Time: 01/13/25 23:21 Attending Provider: Saqib Mahan Primary Care Provider: Hernando Chung Consulting Providers: Pietro Griffith Discharge Orders/Prescriptions Prescriptions: New insulin lispro [Humalog KwikPen Insulin] 100 unit/mL Insulin Pen See Protocol subcut ACHS Qty: 0 0RF Protocol: 3. Sliding Scale Insulin Med Dosing Condition: 150-189 mg/dl = 1 unit Condition: 190-229 mg/dl = 2 units Condition: 230-269 mg/dl = 3 units Condition: 270-309 mg/dl = 4 units Condition: 310-349 mg/dl = 5 units Condition: 350-399 mg/dl = 6 units Condition: 400-449 mg/dl = 7 units Condition: Greater than 449 call physician Protocol Text: Suggested for: - Patients on Total Daily Insulin Dose of 37-55 units - Obese, infected, or steroid patients MEDIUM DOSING ALGORITHIM Glucerna 1.2 Bin 0.06-1.2 gram-kcal/mL Liquid 120 ml PO 4X/DAY Qty: 0 0RF Continued albuterol sulfate 90 mcg/actuation HFA aerosol inhaler 2 inh inhalation Q6H PRN (Reason: shortness of breath or wheezing) umeclidinium-vilanterol [Anoro Ellipta] 62.5-25 mcg/actuation blister with device 1 ea inhalation DAILY metformin 500 mg tablet 500 mg PO BID amlodipine 5 mg tablet 5 mg PO DAILY Qty: 30 1RF fenofibrate micronized 67 mg capsule 67 mg PO DAILY Qty: 30 1RF atorvastatin 40 mg tablet 40 mg PO QHS Qty: 90 0RF allopurinol 100 mg tablet 100 mg PO DAILY Qty: 90 0RF Referrals / Follow Up: Sunny Guzman MD [Med Staff - Active Staff] - Hernando Chung MD [Primary Care Provider] - Disposition Disposition (needs filled in before D/C Order can be placed): [facility]
--- NOTE | 2025-01-16 15:30 | DS.PCM_ITS ---
Providers Date of Admission: 01/13/25 Date of Discharge: 01/16/25 Primary Care Physician: Dr. Hernando Chung MD Reason For Visit: HYPOXIA AND WEAKNESS Diagnosis Discharge Diagnosis (1) Adult failure to thrive: Status: Acute Code(s): R62.7 - Adult failure to thrive (2) Exertional dyspnea: Status: Acute Code(s): R06.09 - Other forms of dyspnea (3) Weakness: Status: Acute Code(s): R53.1 - Weakness Plan Patient is an 79-year-old female admitted with progressive generalized weakness following recent cruise which was complicated by flu and subsequent pneumonia requiring hospitalization in [place]. Patient was brought directly to the ED after she [place]embark[place] from the airport 1. Acute hypoxic respiratory insufficiency ? Secondary to recent influenza A pneumonia with superimposed bacterial pneumonia. Patient was treated appropriately. Placed on supplemental oxygen. Plan is to assess patient for home oxygen ? 01/15/2025; patient remains on 2 L flow per minute 2. Physical deconditioning ? Requested for PT OT eval and pediatric social worker to assist with discharge planning ? 01/16/2025; awaiting insurance precertification prior to transfer to [facility] ? Patient was discharged to [facility] once insurance precertification was obtained 3. Hypertension ? Blood pressure controlled, home medications continued with dose adjustment as needed 4. Diabetes mellitus type 2 ? Patient is on metformin held on admission placed on Accu-Cheks AC and at bedtime with sliding scale coverage 5. Dyslipidemia ? Patient is on fenofibrate and atorvastatin, continued 6. Gout ? Patient is on allopurinol continue 7. DVT prophylaxis ? On enoxaparin 8. Diarrhea ? Patient was placed under enteric precautions given her recent travel. She had also been treated with antibiotics stool was therefore sent for enteric pathogen panel as well as C. difficile ? 01/16/2025; patient has not had any recurrence of her diarrhea. Isolation subsequently discontinued Medications at Discharge Home Medications amlodipine 5 mg tablet 5 mg PO DAILY #30 tabs 12/07/23 fenofibrate micronized 67 mg capsule 67 mg PO DAILY #30 caps 12/07/23 allopurinol 100 mg tablet 100 mg PO DAILY #90 tabs 02/04/24 atorvastatin 40 mg tablet 40 mg PO QHS #90 tabs 02/04/24 albuterol sulfate 90 mcg/actuation aerosol inhaler 2 inh inhalation Q6H PRN shortness of breath or wheezing 01/13/25 metformin 500 mg tablet 500 mg PO BID 01/13/25 umeclidinium 62.5 mcg-vilanterol 25 mcg/actuation powdr for inhalation (Anoro Ellipta) 1 ea inhalation DAILY 01/13/25 insulin lispro 100 unit/mL subcutaneous pen (Humalog KwikPen (U-100) Insulin) See Protocol subcut ACHS #0 mL 01/16/25 nutrition tx glu intol,lac-free,soy-fiber 0.06 gram-1.2 kcal/mL liquid (Glucerna 1.2 Bin) 120 ml PO 4X/DAY #0 mL 01/16/25 Hospital Course Summary of Care Provided Minutes Spent on Discharge: 35 Physical Exam Narrative GENERAL: cooperative on supplemental oxygen HEENT: Atraumatic; normocephalic EYES; Anicteric, Normal Conjunctiva NECK; supple, normal thyroid, RESPIRATORY: Diminished to auscultation CARDIOVASCULAR: Regular S1 S2, GI: soft, normoactive bowel sounds, : No Renal angle tenderness; EXTREMITIES: No edema, no clubbing, MUSCULOSKELETAL: no muscle wasting NEURO: Awake; no lateralizing signs. SKIN: No Rash PSYCH; Flat affect Weight / BMI Weight Weight: 76.4 kg Body Mass Index (BMI) 30.8 ABG / Lab / Microbiology Data 01/16/25 06:11 01/16/25 06:11 Laboratory: Laboratory Results - last 24 hr 01/15/25 15:44: POC Glucose 115 H 01/15/25 21:32: POC Glucose 135 H 01/16/25 05:47: POC Glucose 145 H 01/16/25 06:11: WBC 5.7, RBC 4.22, Hgb 12.5, Hct 38.4, MCV 91.0, MCH 29.6, MCHC 32.6, RDW Std Deviation 47.6 H, RDW Coeff of Kevin 14.2, Plt Count 256, MPV 9.7, Immature Gran % (Auto) 0.300, Neut % (Auto) 55.5, Lymph % (Auto) 25.3, [place] % (Auto) 11.7 H, Eos % (Auto) 6.3 H, Baso % (Auto) 0.9, Absolute Neuts (auto) 3.2, Absolute Lymphs (auto) 1.45, Nucleated RBC % 0, Sodium 142, Potassium 3.3, Chloride 105, Carbon Dioxide 25.5, Anion Gap 11, BUN 7, Creatinine 0.69 L, Estim Creat Clear Calc 53.67, Est GFR (MDRD) Non-Af 88, BUN/Creatinine Ratio 10.0, G lucose 131 H, Calcium 8.8 01/16/25 11:24: POC Glucose 158 H D/C Instructions Discharge Diet: 1800 Calorie Control Diet Discharge Activity: Return to Normal Activity Call your doctor if you observe: Fever of 101 or Higher, Shortness of breath, Fainting spells and Chest pain DC O2, CPAP, BIPAP Needs Home O2 Discharge instructions: Yes Type of respiratory needs?: Oxygen Oxygen frequency: Continuous Continuous oxygen liters per minute: 2 DC home with Oxygen: Yes Home O2 MD Review: I have reviewed the oxygen testing, and the patient qualifies for home oxygen equipment and portability. The patient is mobile in the home and the community. Meaningful Use Info Meaningful Use Meaningful Use Diagnoses (Choose all that apply): None applicable Ischemic Stroke Statin Dosing Therapy Reference: STATIN DOSE THERAPY REFERENCE: * Patients > 75 years receive moderate or high dose statin therapy. * Patients 75 years or YOUNGER should receive HIGH intensity statin dose unless contraindicated. You will be required to document reason for non-treatment if statin daily dose does not meet guidelines. HIGH DOSE STATIN THERAPY DAILY Atorvastatin > than or = to 40 mg Rosuvastatin > than or = to 20 mg Amlodipine + Atorvastatin > than or = to 2.5/40 mg Ezetimibe + Simvastatin 10/80 mg Simvastatin 80mg Discharge Plan Admission Admit Date/Time: 01/13/25 23:21 Attending Provider: Saqib Mahan Primary Care Provider: Hernando Chung Consulting Providers: Pietro Griffith Discharge Orders/Prescriptions Prescriptions: New insulin lispro [Humalog KwikPen Insulin] 100 unit/mL Insulin Pen See Protocol subcut ACHS Qty: 0 0RF Protocol: 3. Sliding Scale Insulin Med Dosing Condition: 150-189 mg/dl = 1 unit Condition: 190-229 mg/dl = 2 units Condition: 230-269 mg/dl = 3 units Condition: 270-309 mg/dl = 4 units Condition: 310-349 mg/dl = 5 units Condition: 350-399 mg/dl = 6 units Condition: 400-449 mg/dl = 7 units Condition: Greater than 449 call physician Protocol Text: Suggested for: - Patients on Total Daily Insulin Dose of 37-55 units - Obese, infected, or steroid patients MEDIUM DOSING ALGORITHIM Glucerna 1.2 Bin 0.06-1.2 gram-kcal/mL Liquid 120 ml PO 4X/DAY Qty: 0 0RF Continued albuterol sulfate 90 mcg/actuation HFA aerosol inhaler 2 inh inhalation Q6H PRN (Reason: shortness of breath or wheezing) umeclidinium-vilanterol [Anoro Ellipta] 62.5-25 mcg/actuation blister with device 1 ea inhalation DAILY metformin 500 mg tablet 500 mg PO BID amlodipine 5 mg tablet 5 mg PO DAILY Qty: 30 1RF fenofibrate micronized 67 mg capsule 67 mg PO DAILY Qty: 30 1RF atorvastatin 40 mg tablet 40 mg PO QHS Qty: 90 0RF allopurinol 100 mg tablet 100 mg PO DAILY Qty: 90 0RF Referrals / Follow Up: Sunny Guzman MD [Med Staff - Active Staff] - Hernando Chung MD [Primary Care Provider] - Disposition Disposition (needs filled in before D/C Order can be placed): [facility] Facility Charges/Coding Visit Charges Inpatient E&M: 04116 Disch Hosp >30min
--- NOTE | 2025-01-16 15:45 | CASEMGMT ---
Addendum entered by Mariella Peck 01/16/25 16:14: Social Work SW let pt know that she is going to [facility] today, transport is at 8pm. Pt in agreement, states understanding. ISABEL Draper Original Note: Social Work Pt was approved to go to [facility] today. Physician is discharging pt. SW completed the hospital exemption in the [facility] system. D/C material requirements planning manager Joann completing the discharge. ISABEL Draper
--- NOTE | 2025-01-16 16:10 | CASEMGMT ---
Discharge Planning Discharge orders, signed med list, and transport time sent to [facility]. Physicians will transport pt by wheelchair at 8p. Nursing and SW updated. left for pts son (Wale). Joann Rivero DC Planning Asst.
--- NOTE | 2025-01-16 16:14 | PHA.DC.MR.R ---
Pharmacy [place] Med Reconciliation Pharmacy Service has performed discharge medication reconciliation for this patient. The patient's discharge medication list was reviewed for discrepancies and discrepancies were resolved. Medications at Discharge Home Medications amlodipine 5 mg tablet 5 mg PO DAILY #30 tabs 12/07/23 fenofibrate micronized 67 mg capsule 67 mg PO DAILY #30 caps 12/07/23 allopurinol 100 mg tablet 100 mg PO DAILY #90 tabs 02/04/24 atorvastatin 40 mg tablet 40 mg PO QHS #90 tabs 02/04/24 albuterol sulfate 90 mcg/actuation aerosol inhaler 2 inh inhalation Q6H PRN shortness of breath or wheezing 01/13/25 metformin 500 mg tablet 500 mg PO BID 01/13/25 umeclidinium 62.5 mcg-vilanterol 25 mcg/actuation powdr for inhalation (Anoro Ellipta) 1 ea inhalation DAILY 01/13/25 insulin lispro 100 unit/mL subcutaneous pen (Humalog KwikPen (U-100) Insulin) See Protocol subcut ACHS #0 mL 01/16/25 nutrition tx glu intol,lac-free,soy-fiber 0.06 gram-1.2 kcal/mL liquid (Glucerna 1.2 Bin) 120 ml PO 4X/DAY #0 mL 01/16/25
[2025-01-16 16:38] LABS: Bedside Glucose 155 mg/dL (74-106)
== END 2025-01-16 19:32 | disposition skilled nursing facility (03) | DRG 641 ==
LOC: ED 22:08 → MS3 01-14 01:56
PROVIDERS: Admitting Provider Family Medicine; Emergency Provider Emergency Medicine; PCP Internal Medicine; Referring Provider Emergency Medicine; Visit Provider Internal Medicine
DX: R62.7 Adult failure to thrive (principal); E11.9 Type 2 diabetes mellitus without complications; I10 Essential (primary) hypertension; Z68.30 Body mass index [BMI] 30.0-30.9, adult; E78.5 Hyperlipidemia, unspecified; M10.9 Gout, unspecified; I25.2 Old myocardial infarction; R19.7 Diarrhea, unspecified; R06.89 Other abnormalities of breathing; R53.1 Weakness; Z87.891 Personal history of nicotine dependence; R09.02 Hypoxemia; Z79.84 Long term (current) use of oral hypoglycemic drugs; Z79.899 Other long term (current) drug therapy; Z79.02 Long term (current) use of antithrombotics/antiplatelets; Z79.51 Long term (current) use of inhaled steroids; Z87.81 Personal history of (healed) traumatic fracture; Z87.01 Personal history of pneumonia (recurrent); Z86.19 Personal history of other infectious and parasitic diseases; R53.81 Other malaise; Z99.89 Dependence on other enabling machines and devices
CPT/HCPCS: 36415; 71275; 80048; 82962; 83880; 84484; 85025; 85027; 85379; 93005; 97162; 97166; 97530; 97535; 97802; 99285; Q9967; A4216